=== PATIENT | female | born 1990 | race Two or more races ===

== ENCOUNTER 2024-06-10 03:06 | Emergency (ER) | payer OTHER ==
[~2024-06-10] VITALS: Ht 154.9 cm; Wt 105.4 kg
--- NOTE | 2024-06-10 03:38 | ED.PDOC ---
GI ASSESSMENT HPI Comments 34-year-old female came to ER due to nausea. Patient woke up with abdominal discomfort with episodes of nausea, vomiting and loose nonbloody diarrhea. States whenever she vomits, she feels like her throat is closing up, causing her difficulty swallowing Chief Complaint: Nausea/Vomiting Time Seen by MD: 03:37 Reviewed Notes: Nurses Notes Information Source: Patient Mode of Arrival: Ambulatory Timing: Hours Duration: Since onset Prehospital treatment: None Quality: Aching Vomitus: Watery Stool: Loose, Watery Severity: Moderate Recent: Possible spoiled food Recent Hx of: None Pain Location: Epigastric Associated sign and symptoms: Nausea, Vomiting, Diarrhea, Abdominal Pain Past Medical History PAST MEDICAL HISTORY: Denies Surgical History: Denies all surgeries SALVAGER History: Denies all SALVAGER Hx Family History Family History: Reviewed,noncontributory to illness Social History Smoker: Non-Smoker Alcohol: Denies ETOH Use Drugs: Denies Drug Use Lives In: Home Constitutional: denies: chills, diaphoresis, fatigue, fever, malaise, sweats, weakness, others EENTM: reports: throat pain, throat swelling; denies: blurred vision, double vision, ear bleeding, ear discharge, ear drainage, ear pain, ear ringing, eye pain, eye redness, hearing loss, mouth pain, mouth swelling, nasal discharge, nose bleeding, nose congestion, nose pain, photophobia, tearing, voice changes, others Respiratory: denies: cough, hemoptysis, orthopnea, SOB at rest, shortness of breath, SOB with excertion, stridor, wheezing, others Cardiovascular: denies: chest pain, dizzy spells, diaphoresis, Dyspnea on exertion, edema, irregular heart beat, left arm pain, lightheadedness, palpitations, PND, syncope, others Gastrointestinal: reports: abdominal pain, diarrhea, nausea, vomiting; denies: abdomen distended, blood streaked bowels, constipated, dysphagia, difficulty swallowing, hematemesis, melena, poor appetite, poor fluid intake, rectal bleeding, rectal pain, others Genitourinary: denies: abnormal vagina bleeding, burning, dyspareunia, dysuria, flank pain, frequency, hematuria, incontinence, pain, , vagina discharge, urgency, others Neurological: denies: dizziness, fainting, headache, left sided numbness, left sided weakness, numbness, paresthesia, pre-existing deficit, right sided numbness, right sided weakness, seizure, speech problems, tingling, tremors, weakness, others Musculoskeletal: denies: back pain, gout, joint pain, joint swelling, muscle pain, muscle stiffness, neck pain, others Integumetry: denies: bruises, change in color, change in hair/nails, dryness, laceration, lesions, lumps, rash, wounds, others Allergic/Immunocompromised: denies: Difficulty Healing, Frequent Infections, Hives, Itching, others Hematologic/Lymphatic: denies: anemia, blood clots, easy bleeding, easy bruising, swollen glands, others Endocrine: denies: excessive hunger, excessive sweating, excessive thirst, excessive urination, flushing, intolerance to cold, intolerance to heat, unexplained weight gain, unexplained weight loss, others Psychiatric: denies: anxiety, bipolar disorder, depression, hopeless, panic disorder, schizophrenia, sleepless, suicidal, others Physical Exam General Appearance: No Apparent Distress, Normal HEENT: Normal ENT Inspection, Pharynx Normal, TMs Normal Neck: Full Range of Motion, Non-Tender, Normal, Normal Inspection Respiratory: Chest Non-Tender, Lungs Clear, No Accessory Muscle Use, No Respiratory Distress, Normal Breath Sounds Cardiovascular: No Edema, No JVD, No Murmur, No Gallop, Normal Peripheral Pulses, Regular Rate/Rhythm Breast Exam: Deferred Gastrointestinal: No Organomegaly, Non Tender, No Pulsatile Mass, Normal Bowel Sounds, Soft Genitalia: Deferred Pelvic: Deferred Rectal: Deferred Extremities: No calf tenderness, Normal capillary refill, Normal inspection, Normal range of motion, Non-tender, No pedal edema Musculoskeletal : Apperance: Normal Neurologic: Alert, senior loss control specialist II-XII nml as Tested, No Motor Deficits, Normal Affect, Normal Mood, No Sensory Deficits Cerebellar Function: Normal Reflexes: Normal Skin: Dry, Normal Color, Warm Lymphatic: No Adenopathy Was a procedure done? Was a procedure done?: No GI differential Dx Differential Diagnosis: Gastritis/PUD, Gastroenteritis, Dehydration, Electrolyte Imbalance, Food Poisoning X-Ray, Labs, Meds, VS Vital Signs Date Time Temp Pulse Resp B/P (MAP) Pulse Ox O2 Delivery O2 Flow Rate FiO2 06/10/24 05:00 18 97 Room Air* 0 21 06/10/24 05:00 98.6 86 18 185/107 (133) 97 98.6 06/10/24 03:19 98.6 92 20 173/78 (109) 97 Current Medications Medications (Trade) Dose Ordered Sig/Young Route Start Time Stop Time Status Last Admin Methylprednisolone Sodium Succinate (Solu Medrol) 125 mg ONCE ONCE IV 06/10/24 03:45 06/10/24 03:46 DC 06/10/24 05:01 Famotidine (Pepcid Injection) 20 mg ONCE ONCE IV 06/10/24 03:45 06/10/24 03:46 DC 06/10/24 05:01 Diphenhydramine HCl (Benadryl Injection) 50 mg ONCE ONCE IV 06/10/24 03:45 06/10/24 03:46 DC 06/10/24 05:00 Sodium Chloride 1,000 ml @ 1,000 mls/hr Q1H ONCE IV 06/10/24 03:45 06/10/24 04:44 DC 06/10/24 04:58 Acetaminophen (Tylenol Tablet) 650 mg ONCE ONCE PO 06/10/24 03:45 06/10/24 03:46 DC 06/10/24 05:02 Ketorolac Tromethamine (Toradol Injection) 15 mg ONCE ONCE IV 06/10/24 03:45 06/10/24 03:46 DC 06/10/24 05:01 Ondansetron HCl (Zofran) 4 mg ONCE ONCE IV 06/10/24 03:45 06/10/24 03:46 DC 06/10/24 05:00 Time of 1ST Reevaluation: 03:30 Reevaluation 1ST: Unchanged Patient Education/Counseling: Diagnosis, Treatment Family Education/Counseling: No Family Present Departure 1 Departure Time of Disposition: 05:41 (Patient reports feeling a lot better. She had likely has gastroenteritis. We will discharge patient home with outpatient follow up) Impression: Primary Impression: Acute gastroenteritis Disposition: 01 HOME / SELF CARE / HOMELESS Condition: Stable Additional Instructions: You likely have gastroenteritis. It is important to stay well hydrated and well rested. This usually resolves within 1 week. If your symptoms worsen or you have any other concerns please return to the ER. Discharged With: Self Critical Care Note Critical Care Time?: No Stability Stability form required: No Heart Score Heart Score: Heart Score Response (Comments) Value History N/A 0 EKG N/A 0 Age N/A 0 Risk Factors N/A 0 Troponin N/A 0 Total 0 I personally scribed for STEFANI CROW MD ([email or web address]) on 06/10/24 at 03:38. Electronically submitted by Ruiz Frias ([facility]). STEFANI CROW MD Jun 10, 2024 03:38
[2024-06-10] MEDS: SODIUM CHLORIDE 0.9% 1,000 ML IV ONE (04:58)
[2024-06-10 05:00] VITALS: BP 185/107; PULSE 86; RESP 18; TEMP 98.6; O2SAT 97
[2024-06-10] MEDS: diphenhdrAMINE HCL 50 MG/1 ML VL IV ONE (05:00)
[2024-06-10] MEDS: ONDANSETRON HCL 4 MG/2 ML VIAL IV ONE (05:00)
[2024-06-10] MEDS: KETOROLAC TROMETH 30 MG/ML 1ML VIAL IV ONE (05:01)
[2024-06-10] MEDS: FAMOTIDINE (10MG/ML) 2ML VL IV ONE (05:01)
[2024-06-10] MEDS: methylPREDNISolone SOD SUCC 125 MG/2 ML VL IV ONE (05:01)
[2024-06-10] MEDS: ACETAMINOPHEN 325 MG TAB PO ONE (05:02)
== END 2024-06-10 05:51 | disposition home or self-care (01) ==
LOC: ER 03:06
DX: K52.9 Noninfective gastroenteritis and colitis, unspecified (principal)
CPT/HCPCS: 96361; 96374; 96375; 99284; J1200; J1885; J2405; J2919; J3490; J7030